=== PATIENT | male | born 1990 | race Caucasian/White ===

== ENCOUNTER 2021-06-15 13:02 | Emergency (ER) | payer MEDICAID ==
[~2021-06-15] VITALS: Ht 167.6 cm; Wt 65.0 kg
[2021-06-15] MEDS ORDERED: LORAZEPAM 2MG/ML CPJ IV ONE (14:00)
[2021-06-15] MEDS ORDERED: SODIUM CHLORIDE 0.9% 1,300 ML IV ONE (14:00)
[2021-06-15 14:12] LABS: BASOPHILS % 0.9 % (0.0-2.0); EOSINOPHILS % 0.8 % (0.0-5.0); HEMATOCRIT. 44.2 % (42.0-52.0); HEMOGLOBIN. 15.3 g/dL (14.0-18.0); LYMPHOCYTES % 19.6 % (20.0-50.0); MEAN CORPUSCULAR VOLUME 92.7 fL (80.0-94.0); MEAN PLATELET VOLUME 8.1 fl (7.4-10.4); MONOCYTES % 11.5 % (2.0-8.0); NEUTROPHILS % 67.2 % (40.0-76.0); PLATELET 216 x1000/uL (130-400); RED BLOOD CELL COUNT 4.77 mill/uL (4.7-6.1)
[2021-06-15 14:18] LABS: CHLORIDE 106 mEq/L (98-107)
[2021-06-15 14:26] LABS: ETHANOL BLOOD < 10 mg/dL
[2021-06-15 14:33] LABS: *COCAINE SCREEN URINE NEGATIVE (NEGATIVE); METHADONE URINE SCREEN NEGATIVE (NEGATIVE); OPIATES URINE SCREEN NEGATIVE (NEGATIVE)
[2021-06-15 14:34] LABS: *AMPHETAMINES SCREEN URINE NEGATIVE (NEGATIVE); *BARBITURATES SCREEN URINE NEGATIVE (NEGATIVE); *BENZODIAZEPINES SCREEN URINE NEGATIVE (NEGATIVE); CANNABINOID URINE SCREEN PRESUMTIVE POSITIVE (NEGATIVE); PHENCYCLIDINE URINE SCREEN NEGATIVE (NEGATIVE)
[2021-06-15 16:14] VITALS: BP 110/50
== END 2021-06-15 16:18 | disposition home or self-care (01) ==
LOC: ER 13:02
DX: F12.929 Cannabis use, unspecified with intoxication, unspecified (principal)
CPT/HCPCS: 36415; 80053; 80305; 80320; 85025; 96374; 99283; J2060; J7030; G0480